=== PATIENT | male | born 1950 | race Caucasian/White ===

== ENCOUNTER 2017-12-19 10:48 | Inpatient (IN) | payer OTHER, MEDICARE ==
[~2017-12-19] VITALS: Ht 172.7 cm; Wt 85.0 kg
[2017-12-19] VITALS (9 sets, daily range): BP systolic 112–155; BP diastolic 68–96; PULSE 60–86; RESP 16–18; TEMP 98.3–98.9; O2SAT 96–99
[2017-12-19] MEDS ORDERED: MORPHINE SULFATE 2 MG/ML SYRINGE ONE (15:52)
[2017-12-19] MEDS ORDERED: DEXTROSE 50% IN WATER 50 ML VIAL(D50) IV PUSH PRN (16:15)
[2017-12-19] MEDS ORDERED: INSULIN REGULAR (IV INFUSION) 100 UNITS in SODIUM CHLORIDE 0.9% INJ 99 ML IV PRN (16:15)
[2017-12-19] MEDS ORDERED: PAPAVERINE INJ 60 MG, NITROGLYCERIN INJ 100 MCG, VERAPAMIL INJ 100 MG in SODIUM CHLORID... IRRIGATION SCH (16:15)
[2017-12-19] MEDS ORDERED: CHLORHEXIDINE GLUCONATE 4% SOLN 120 ML BTL TOPICAL SCH (16:15)
[2017-12-19] MEDS ORDERED: ceFAZolin 2 GM PREMIX 50 ML IV SCH (16:15)
[2017-12-19] MEDS ORDERED: SODIUM CHLORIDE 0.9% FLUSH 10 ML FLUSH IV FLUSH PRN ×2 (16:15→16:30)
[2017-12-19] MEDS ORDERED: METOPROLOL TARTRATE 25 MG TAB PO SCH (16:15)
[2017-12-19] MEDS ORDERED: NALOXONE HCL 0.4 MG/ML AMP IV PUSH PRN (16:30)
[2017-12-19] MEDS ORDERED: SENNOSIDES 8.6 MG TAB PO PRN (16:30)
[2017-12-19] MEDS ORDERED: MAGNESIUM HYDROXIDE SUSP 30 ML CUP PO PRN (16:30)
[2017-12-19] MEDS ORDERED: LACTULOSE SYRUP 20 GM/30 ML CUP PO PRN (16:30)
[2017-12-19] MEDS ORDERED: BISACODYL 10 MG SUPP RECTAL PRN (16:30)
[2017-12-19] MEDS ORDERED: hydrALAZINE HCL 20 MG/ML VIAL IV PUSH PRN (16:45)
[2017-12-19 17:06] LABS: AUTOMATED NEUTROPHIL # 4.7 TH/MM3 (1.8-7.7); BASOPHIL # 0.1 TH/MM3 (0-0.2); BASOPHIL % 0.7 % (0.0-2.0); EOSINOPHIL # 0.1 TH/MM3 (0-0.4); EOSINOPHIL % 1.1 % (0.0-4.0); HEMATOCRIT 40.7 % (39.0-51.0); HEMOGLOBIN 14.2 GM/DL (13.0-17.0); LYMPH % 23.6 % (9.0-44.0); LYMPHOCYTE # 1.7 TH/MM3 (1.0-4.8); MEAN CELL VOLUME 96.7 FL (80.0-100.0); MEAN CORPUSCULAR HEMOGLOBIN 33.7 PG (27.0-34.0); MEAN CORPUSCULAR HGB CONC 34.8 % (32.0-36.0); MEAN PLATELET VOLUME 9.4 FL (7.0-11.0); MONO % 7.2 % (0.0-8.0); MONOCYTE # 0.5 TH/MM3 (0-0.9); NEUT % 67.4 % (16.0-70.0); PLATELET COUNT 180 TH/MM3 (150-450); RED BLOOD COUNT 4.21 MIL/MM3 (4.50-5.90); RED CELL DISTRIBUTION WIDTH 12.9 % (11.6-17.2)
[2017-12-19 17:14] LABS: INTERNATIONAL NORMALIZED RATIO 1.1 RATIO; PROTHROMBIN TIME - PATIENT 10.7 SEC (9.8-11.6)
[2017-12-19 17:28] LABS: ALBUMIN 3.4 GM/DL (3.4-5.0); ALT (GPT) 38 U/L (12-78); AST (GOT) 93 U/L (15-37); BICARBONATE 22.6 MEQ/L (21.0-32.0); BLOOD UREA NITROGEN 8 MG/DL (7-18); CALCIUM 7.8 MG/DL (8.5-10.1); CHLORIDE 109 MEQ/L (98-107); CREATININE 0.96 MG/DL (0.60-1.30); GLOMERULAR FILTRATION RATE 78 ML/MIN (>89); GLUCOSE,RANDOM 88 MG/DL (74-106); SODIUM (NA) 143 MEQ/L (136-145)
[2017-12-19 17:32] LABS: ALKALINE PHOSPHATASE 60 U/L (45-117); TOTAL BILIRUBIN ADULT 0.3 MG/DL (0.2-1.0); TOTAL PROTEIN 6.4 GM/DL (6.4-8.2)
--- NOTE | 2017-12-19 17:32 | MB ---
cc: Agnieszka Landon Jacqueline R ARNP DATE: 12/19/2017 HISTORY OF PRESENT ILLNESS: A 67-year-old male transferred from [facility] by the request of Dr. Neil Estrella, cardiology. Primary care physician is Dr. Nicole at the [facility] in [place]. 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 He is a 67-year-old male who was visiting his son in the [place] area. Normally he lives in [place]. He was helping him move, when he developed some chest pain about 4:30 on 12/18, went to [place] [facility]. The pain was a sudden onset about a 9/10. He had not been feeling well over the past couple of weeks. He also started to break out in a cold sweat and diaphoretic. Denied any dizziness or shortness of breath. He started having some nausea when he arrived. He received some Dilaudid and Zofran. He was ruled in for a non-STEMI. The troponins, initial was 0.01 and then 0.13, and then the last was 0.73. The last troponin apparently was 1.14. The initial EKG showed some nonspecific T-wave changes, left axis deviation. He underwent cardiac catheterization today by Dr. Estrella, which showed a 90-95% stenosis in the left main, the mid LAD 60%, the left circumflex 85%, the RCA 60%. EF was approximately 45%. He was transferred to our facility and will be evaluated for urgent coronary artery bypass grafting. PAST MEDICAL HISTORY: Includes coronary artery disease, prior stenting x4 at [facility] in [place] about 10 years ago. He has a history of hypertension, hyperlipidemia, COPD, thyroid cancer in 2015 with status post total thyroidectomy. Other surgeries include left nephrectomy at age 33 due to some ureter problem ALLERGIES: NO KNOWN ALLERGIES. HOME MEDICATIONS: 1. Verapamil 180 mg per day. 2. Tramadol 50 b.i.d. 3. Viagra 100 p.r.n. 4. Omeprazole 20. 5. Levothyroxine 175 mcg per day. 6. Zyrtec 10 p.o. daily. 7. Aspirin 81 mg daily. 9. Xanax 1 mg b.i.d. FAMILY HISTORY: Mother IS still alive at age 97. Father from a stroke. SOCIAL HISTORY: He is , has 1 child, lives with his significant other. Her name is Nimco. He does drink approximately 4 drinks per day. He has never undergone any type of withdrawals. Prior tobacco. He smoked for 20-30 years off and on. He quit 10 years ago. REVIEW OF SYSTEMS: GENERAL: No night sweats, fever, heat and cold intolerance. SKIN: No psoriasis, itching or hives. HEENT: No blurred vision or hearing loss. RESPIRATORY: No cough or shortness of breath. CARDIOVASCULAR: As above in the HPI. GASTROINTESTINAL: No diarrhea or vomiting. GENITOURINARY: No burning, frequency, urgency. CENTRAL NERVOUS SYSTEM: No history of TIA, CVA or seizure disorder. ENDOCRINOLOGY: Positive for hypothyroidism. PHYSICAL EXAMINATION: VITAL SIGNS: Blood pressure 150/90, heart rate in the mid 70s. Room air saturation 96%. GENERAL: The patient is awake, alert, in no acute distress. HEENT: Head is normocephalic, atraumatic. Pupils equal and reactive. Oral mucosa pink, moist. NECK: Supple. No JVD. CARDIOVASCULAR: Sounds S1, S2. Regular rate and rhythm. No audible rubs, murmurs, or gallops. LUNGS: Clear to auscultation. No wheezes, rales or rhonchi. ABDOMEN: Obese, soft, nontender. No masses or organomegaly. EXTREMITIES: No cyanosis, clubbing or edema. The patient did have a TR band on his right wrist from his catheterization site, which developed a hematoma. Once he arrived to our facility, we immediately replaced the TR band with TR band post nursing instructions. The heparin was initially turned off and will be resumed 6 hours post TR band removal. LABORATORY DATA: From 12/18 - new lab work is pending. Hemoglobin of 14, hematocrit of 42, platelet count of 254. INR 1.0. Sodium 145, potassium 4.2, BUN of 12 with a creatinine of 1.13, glucose random 118. BNP is 379. Troponins as above. IMAGING STUDIES: Chest x-ray just shows some hyperinflation, otherwise unremarkable. CARDIOLOGY STUDIES: EKG as above in the HPI. ASSESSMENT AND PLAN: This is a 67-year-old male transferred from [facility] with multivessel disease, high-grade left main stenosis, evaluated for coronary artery bypass grafting x3. Procedures, alternatives and risks have been discussed with the patient. He is agreeable to proceed. Timing for surgery as per Dr. Henrique Disla. In the meantime, he will be placed on a beta stan, aspirin, statin, nitro paste. Resume heparin this evening and then further planning per Dr. Disla. DOMINGUEZ Nguyen MD JRT/ , 05:03 PM , 05:30 PM
[2017-12-19] MEDS ORDERED: PILL SPLITTER OTHER PRN (18:00)
[2017-12-19] MEDS ORDERED: ONDANSETRON ODT 4 MG TAB PO PRN (18:15)
[2017-12-19] MEDS ORDERED: MORPHINE SULFATE 4 MG/ML INJ IV PRN (18:15)
[2017-12-19] MEDS: METOPROLOL TARTRATE 25 MG TAB PO SCH ×2 (18:26→21:02)
[2017-12-19] MEDS: NITROGLYCERIN 2% OINT 1 GM PACKET TOPICAL SCH ×2 (18:26→23:25)
[2017-12-19] MEDS: HEPARIN-D5W 25,000 U/250 ML 250 ML IV PRN (19:00)
[2017-12-19 19:07] LABS: CHOLESTEROL/ HDL RATIO 2.6 RATIO
[2017-12-19 19:29] LABS: HEMOGLOBIN A1C 5.4 % (4.3-6.0)
[2017-12-19 19:57] LABS: BACTERIA, URINE RARE /hpf; BILIRUBIN, URINE NEG (NEG); BLOOD, URINE NEG (NEG); GLUCOSE,URINE NEG (NEG); HYALINE CAST, URINE 2 /lpf (RARE); KETONE, URINE 10 mg/dL (NEG); NITRITE,URINE NEG (NEG); URINE COLOR LIGHT-YELLOW (YELLW/STRAW); URINE LEUKOCYTE ESTERASE LARGE (NEG)
[2017-12-19] MEDS ORDERED: SODIUM CHLORIDE 0.9% FLUSH 10 ML FLUSH IV FLUSH SCH (21:00)
[2017-12-19] MEDS: DOCUSATE SODIUM 50 MG/SENNA 8.6 MG TAB PO SCH (21:02)
[2017-12-19] MEDS: ATORVASTATIN 40 MG TAB PO SCH (21:02)
[2017-12-19] MEDS: ALPRAZolam 0.5 MG TAB PO PRN (21:02)
[2017-12-19] MEDS: BUDESONIDE-FORMOTEROL 80/4.5 MCG INHALER INH SCH (21:09)
[2017-12-19] MEDS: SODIUM CHLORIDE 0.9% FLUSH 10 ML FLUSH IV FLUSH SCH (21:10)
--- NOTE | 2017-12-19 21:28 | RADRPT ---
EXAM DATE: 12/19/2017 9:22 PM EDT AGE/SEX: 67 years / Male INDICATIONS: Pre-operative for CABG. Evaluate for pneumothorax, pneumonia, or communicable disease. CLINICAL DATA: This is the patient's initial encounter. Patient reports that signs and symptoms have been present for 1 day and indicates a pain score of 0/10. MEDICAL/SURGICAL HISTORY: . Myocardial infarction. . Cardiac stent. COMPARISON: No prior exams available for comparison. FINDINGS: A single AP view of the chest demonstrates the lungs to be symmetrically aerated without evidence of mass, infiltrate or effusion. The cardiomediastinal contours are unremarkable. There is a dextroscol iosis of the thoracic spine. CONCLUSION: No acute cardiopulmonary process. Electronically signed by: Duke Decker MD 12/19/2017 9:27 PM EDT
[2017-12-19] MEDS: ACETAMINOPHEN/HYDROcodone 325 MG/5 MG TAB PO PRN (22:14)
--- NOTE | 2017-12-19 23:18 | RADRPT ---
EXAM DATE: 12/19/2017 11:11 PM EDT AGE/SEX: 67 years / Male INDICATIONS: PreOp Cardiac Surgery. CLINICAL DATA: This is the patient's initial encounter. Patient reports that signs and symptoms have been present for 1 day and indicates a pain score of 0/10. MEDICAL/SURGICAL HISTORY: Cardiovascular disease. Hypercholesterolemia. Hypertension. COPD. Thyroid Cancer. Thyroidectomy. Coronary artery stent. Nephrectomy. COMPARISON: No prior exams available for comparison. VELOCITY PARAMETERS: ICA/CCA Ratio: Right 1.16 , Left 0.87 ICA: Right 121 cm/sec, Left 109 cm/sec CCA: Right 104 cm/sec, Left 126 cm/sec ECA: Right 113 cm/sec, Left 131 cm/sec Vertebral: Right 20 cm/sec antegrade, Left 51 cm/sec antegrade FINDINGS: Right Carotid: There is mild soft plaque at the carotid bulb region. No significant stenosis is visu alized. The waveforms are within normal limits. Left Carotid: There is minimal soft plaque at the carotid bulb region. No significant stenosis is vi sualized. The waveforms are within normal limits. Other: None. CONCLUSION: Plaque at the carotid bulb regions being mild on the right and minimal on the left withou t significant stenosis. Electronically signed by: Duke Decker MD 12/19/2017 11:17 PM EDT
--- NOTE | 2017-12-19 23:19 | RADRPT ---
EXAM DATE: 12/19/2017 11:16 PM EDT AGE/SEX: 67 years / Male INDICATIONS: PreOp Cardiac Surgery. CLINICAL DATA: This is the patient's initial encounter. Patient reports that signs and symptoms have been present for 1 day and indicates a pain score of 0/10. MEDICAL/SURGICAL HISTORY: Cardiovascular disease. Hypercholesterolemia. Hypertension. COPD. Thyroid Cancer. Thyroidectomy. Coronary artery stent. Nephrectomy. COMPARISON: No prior exams available for comparison. TECHNIQUE: Venous ultrasound of both lower extremities was performed from the inguinal ligament to t he proximal calf. Real-time, color Doppler and spectral tracing, compression and augmentation techni ques were used. FINDINGS: Right Leg: There is normal compressibility of the deep venous system from the inguinal region to the proximal calf. No echogenic clot is seen in the lumen of the common femoral, femoral, popliteal, an d posterior tibial veins. There is a normal response of the venous system to proximal and distal aug mentation and respiration. Left Leg: There is normal compressibility of the deep venous system from the inguinal region to the proximal calf. No echogenic clot is seen in the lumen of the common femoral, femoral, popliteal, and posterior tibial veins. There is a normal response of the venous system to proximal and distal augm entation and respiration. CONCLUSION: No DVT. Electronically signed by: Duke Decker MD 12/19/2017 11:17 PM EDT
--- NOTE | 2017-12-19 23:54 | RADRPT ---
EXAM DATE: 12/19/2017 11:28 PM EDT AGE/SEX: 67 years / Male INDICATIONS: PreOp Cardiac Surgery. CLINICAL DATA: This is the patient's initial encounter. Patient reports that signs and symptoms have been present for 1 day and indicates a pain score of 0/10. MEDICAL/SURGICAL HISTORY: Cardiovascular disease. Hypercholesterolemia. Hypertension. COPD. Thyroid Cancer. Thyroidectomy. Coronary artery stent. Nephrectomy. COMPARISON: No prior exams available for comparison. MEASUREMENTS: RIGHT THIGH: Proximal:__7 mm Mid:__ 3 mm Distal:__3 mm LEFT THIGH: Proximal:__7 mm Mid:__5 mm Distal:__3 mm RIGHT CALF: Proximal:__3 mm Mid:__4 mm Distal:__3 mm LEFT CALF: Proximal:__2 mm Mid:__2 mm Distal:__3 mm FINDINGS: The venous system of the lower extremities are patent by color Doppler imaging. Measurements of the leg veins (in mm) are listed above. CONCLUSION: 1. Normal venous mapping measurements as above. Electronically signed by: Adam Shine MD 12/19/2017 11:53 PM EDT
[2017-12-20] VITALS (29 sets, daily range): BP systolic 117–152; BP diastolic 73–85; PULSE 52–94; RESP 16–19; TEMP 98.2–99.6; O2SAT 95–99
[2017-12-20] MEDS: ACETAMINOPHEN/HYDROcodone 325 MG/5 MG TAB PO PRN ×2 (04:41→18:25)
[2017-12-20] MEDS: LEVOTHYROXINE SODIUM 150 MCG TAB PO SCH (06:12)
[2017-12-20] MEDS: LEVOTHYROXINE SODIUM 25 MCG TAB PO SCH (06:12)
[2017-12-20] MEDS: NITROGLYCERIN 2% OINT 1 GM PACKET TOPICAL SCH ×4 (06:12→22:25)
[2017-12-20] MEDS: ASPIRIN EC 81 MG TABEC PO SCH (08:52)
[2017-12-20] MEDS: FLUTICASONE PROPIONATE 50 MCG/ACT 16 GM NASAL SPRAY NASAL SCH (08:52)
[2017-12-20] MEDS: PANTOPRAZOLE SOD 40 MG DELAYED RELEASE TAB PO SCH (08:52)
[2017-12-20] MEDS: BUDESONIDE-FORMOTEROL 80/4.5 MCG INHALER INH SCH ×2 (08:52→21:04)
[2017-12-20] MEDS: VERAPAMIL HCL 180 MG SUSTAINED RELEASE TAB PO SCH (08:53)
[2017-12-20] MEDS: SODIUM CHLORIDE 0.9% FLUSH 10 ML FLUSH IV FLUSH SCH ×2 (08:53→21:00)
[2017-12-20] MEDS: METOPROLOL TARTRATE 25 MG TAB PO SCH ×2 (08:53→20:59)
[2017-12-20] MEDS: DOCUSATE SODIUM 50 MG/SENNA 8.6 MG TAB PO SCH ×2 (08:53→21:00)
--- NOTE | 2017-12-20 09:25 | PD.CAR.PN ---
CVT Progress Note Subjective/Hospital Course: Doing well this am. Denies Cp/SOB c/o right hand tingling and numbness..better than yesterday Will ask Dr. Borden for his opinion with concern for compartment syndrome during surgery following full heparinization Plan for CABG Friday if ok with Dr. Borden Objective: Vital Signs Date Time Temp Pulse Resp B/P (MAP) Pulse Ox O2 Delivery O2 Flow Rate FiO2 12/20/17 06:00 54 12/20/17 05:00 54 12/20/17 04:42 57 16 117/73 (88) 96 12/20/17 04:00 56 12/20/17 03:00 54 12/20/17 02:00 62 12/20/17 01:00 58 12/20/17 00:00 56 12/19/17 23:25 61 16 112/68 (83) 96 12/19/17 23:00 60 12/19/17 22:00 68 12/19/17 21:00 82 12/19/17 20:40 98.3 84 18 154/92 (112) 96 12/19/17 20:00 86 12/19/17 19:00 78 12/19/17 18:00 65 12/19/17 16:00 98.9 72 18 155/96 (115) 99 Labs: Laboratory Tests Test 12/20/17 01:03 Activated Partial Thromboplast Time 38.9 SEC (24.3-30.1) Result Diagram: 12/19/17 1639 12/19/17 1639 Henrique Disla MD Dec 20, 2017 09:25
[2017-12-20] MEDS: SULFAMETHOXAZOLE-TRIMETHOPRIM DS 800-160 MG TAB PO SCH ×2 (09:45→20:59)
--- NOTE | 2017-12-20 10:08 | PD.VS.CON ---
History of Present Illness Chief Complaint: R arm hematoma after LHC (radial access) Consult Requested by: Dr. Kathleen Disla History of Present Illness 67 yo male with CAD and AK 10 y ago with coronary stents, admitted to OSH with chest pain and underwent LHC that showed [place] disease. Transferred to [facility] for CABG. Upon arrival, found to have R forearm hematoma proximal to site of access radial artery. Pt elevated and used compression overnight and called this morning to evaluate. Notes he had radial side numbness last night but normal today. Motor intact. No pain only soreness. Past/Family/Social History Past Medical History CAD thyroid CA ureteral stricture (?) Past Surgical History thyroidectomy L nephrectomy Social History lives at home Family History no family history of thyroid CA Coded Allergies: No Known Allergies (Verified Allergy, Unknown, 12/19/17) Review of Systems Respiratory: DENIES: Cough, Hemoptysis, Shortness of breath Cardiovascular: DENIES: Chest pain Physical Exam Vitals/I&O Date Time Temp Pulse Resp B/P (MAP) Pulse Ox O2 Delivery O2 Flow Rate FiO2 12/20/17 08:15 98.3 64 18 126/81 (96) 99 12/20/17 06:00 54 12/20/17 05:00 54 12/20/17 04:42 57 16 117/73 (88) 96 12/20/17 04:00 56 12/20/17 03:00 54 12/20/17 02:00 62 12/20/17 01:00 58 12/20/17 00:00 56 12/19/17 23:25 61 16 112/68 (83) 96 12/19/17 23:00 60 12/19/17 22:00 68 12/19/17 21:00 82 12/19/17 20:40 98.3 84 18 154/92 (112) 96 12/19/17 20:00 86 12/19/17 19:00 78 12/19/17 18:00 65 12/19/17 16:00 98.9 72 18 155/96 (115) 99 12/20/17 12/20/17 12/20/17 07:00 15:00 23:00 Intake Total 240 ml Output Total 650 ml Balance -410 ml Neuro: resting comfortably, no distress, [place] HEENT: NC/AT Neck: trachea midline Heart: reg rate Lungs: nonlabored Vascular: palpable R radial and ulnar pulses triphasic radial signal distal to access site bi-tri phasic palmar arch signal Extremities: motor intact and sensory intact R UE including hand fullness and ecchymoses R forearm but compartments not tense Laboratory Tests Test 12/19/17 16:39 12/19/17 16:50 12/19/17 18:30 12/20/17 01:03 White Blood Count 7.0 Red Blood Count 4.21 Hemoglobin 14.2 Hematocrit 40.7 Mean Corpuscular Volume 96.7 Mean Corpuscular Hemoglobin 33.7 Mean Corpuscular Hemoglobin Concent 34.8 Red Cell Distribution Width 12.9 Platelet Count 180 Mean Platelet Volume 9.4 Neutrophils (%) (Auto) 67.4 Lymphocytes (%) (Auto) 23.6 Monocytes (%) (Auto) 7.2 Eosinophils (%) (Auto) 1.1 Basophils (%) (Auto) 0.7 Neutrophils # (Auto) 4.7 Lymphocytes # (Auto) 1.7 Monocytes # (Auto) 0.5 Eosinophils # (Auto) 0.1 Basophils # (Auto) 0.1 CBC Comment DIFF FINAL Differential Comment Prothrombin Time 10.7 Prothromb Time International Ratio 1.1 Activated Partial Thromboplast Time 39.3 38.9 Blood Urea Nitrogen 8 Creatinine 0.96 Random Glucose 88 Total Protein 6.4 Albumin 3.4 Calcium Level 7.8 Alkaline Phosphatase 60 Aspartate Amino Transf (AST/SGOT) 93 Alanine Aminotransferase (ALT/SGPT) 38 Total Bilirubin 0.3 Sodium Level 143 Potassium Level 3.7 Chloride Level 109 Carbon Dioxide Level 22.6 Anion Gap 11 Estimat Glomerular Filtration Rate 78 Hemoglobin A1c 5.4 Troponin I 12.70 Triglycerides Level 112 Cholesterol Level 180 LDL Cholesterol 89 HDL Cholesterol 69.0 Cholesterol/HDL Ratio 2.60 Nasal Screen MRSA (PCR) MRSA NOT DETECTED Urine Color LIGHT-YELLOW Urine Turbidity CLEAR Urine pH 6.0 Urine Specific [place] 1.015 Urine Protein NEG Urine Glucose (UA) NEG Urine Ketones 10 Urine Occult Blood NEG Urine Nitrite NEG Urine Bilirubin NEG Urine Urobilinogen LESS THAN 2.0 Urine Leukocyte Esterase LARGE Urine WBC 17 Urine Bacteria RARE Urine Hyaline Casts 2 Microscopic Urinalysis Comment CULTURE INDICATED Date/Time Source Procedure Growth Status 12/19/17 18:30 Urine Clean Catch Urine Culture Pending Received Last 48 hours Impressions Chest X-Ray 12/19/17 1620 Signed Impressions: CONCLUSION: No acute cardiopulmonary process. Lower Extremity Ultrasound 12/19/17 0000 Signed Impressions: CONCLUSION: 1. Normal venous mapping measurements as above. Lower Extremity Ultrasound 12/19/17 0000 Signed Impressions: CONCLUSION: No DVT. Carotid Artery Ultrasound 12/19/17 0000 Signed Impressions: CONCLUSION: Plaque at the carotid bulb regions being mild on the right and mini mal on the left without significant stenosis. Assessment and Plan Plan R forearm hematoma after radial artery cath I think it is safe to proceed with CABG on Friday including systemic anticoagulation. Discussed with the patient and his that if the hematoma worsens with anticoagulation or certainly if he develops neurovascular compromise or any suggestion of compartment syndrome, then he'll need surgical exploration. Discussed with Dr. Disla as well. Will follow. Yahir Borden MD Dec 20, 2017 10:08
[2017-12-20] MEDS: HEPARIN-D5W 25,000 U/250 ML 250 ML IV PRN (11:24)
--- NOTE | 2017-12-20 15:00 | EKG ---
Date Performed: 12/19/2017 Time Performed: 17:44:38 PTAGE: 67 years EKG: Sinus rhythm with PVC(s). Prolonged QT interval Lateral T wave changes are nonspecific Borderline ECG NO PREVIOUS TRACING DOCTOR: Jalen Lao Interpretating Date/Time 12/20/2017 14:59:16
[2017-12-20] MEDS: ALPRAZolam 0.5 MG TAB PO PRN ×2 (15:01→22:27)
[2017-12-20] MEDS ORDERED: ALPRAZolam 0.5 MG TAB PO ONE (19:45)
[2017-12-20] MEDS ORDERED: ACETAMINOPHEN 325 MG TAB PO ONE (19:45)
[2017-12-20] MEDS: ATORVASTATIN 40 MG TAB PO SCH (20:59)
[2017-12-20] MEDS ORDERED: traMADol HCL 50 MG TAB PO SCH (21:45)
[2017-12-21] VITALS (29 sets, daily range): BP systolic 86–152; BP diastolic 48–89; PULSE 59–93; RESP 16–20; TEMP 98.7–100.8; O2SAT 92–96
[2017-12-21] MEDS: ACETAMINOPHEN 325 MG TAB PO PRN ×3 (04:35→23:14)
[2017-12-21] MEDS: LEVOTHYROXINE SODIUM 25 MCG TAB PO SCH (06:22)
[2017-12-21] MEDS: NITROGLYCERIN 2% OINT 1 GM PACKET TOPICAL SCH ×4 (06:22→22:53)
[2017-12-21] MEDS: LEVOTHYROXINE SODIUM 150 MCG TAB PO SCH (06:22)
--- NOTE | 2017-12-21 08:58 | PD.VS.PN ---
Subjective Subjective/Hospital Course Pt reports fevers and chills overnight but no chest pain arm sore but no hand complaints Objective Vitals/I&O Date Time Temp Pulse Resp B/P (MAP) Pulse Ox O2 Delivery O2 Flow Rate FiO2 12/21/17 07:01 74 12/21/17 06:19 76 12/21/17 05:20 75 12/21/17 04:49 84 12/21/17 03:50 99.9 89 20 152/89 (110) 94 12/21/17 03:20 92 12/21/17 02:07 88 12/21/17 01:39 87 12/21/17 00:31 93 12/20/17 23:34 98.5 92 19 141/77 (98) 95 12/20/17 23:20 78 12/20/17 22:00 78 12/20/17 21:00 80 12/20/17 20:00 79 12/20/17 19:30 99.6 94 18 152/79 (103) 97 12/20/17 19:30 94 12/20/17 18:01 78 12/20/17 17:00 80 12/20/17 16:01 78 12/20/17 15:15 98.2 66 18 127/85 (99) 96 12/20/17 15:00 71 12/20/17 14:00 76 12/20/17 13:00 80 12/20/17 12:01 74 12/20/17 11:15 98.3 52 18 126/74 (91) 98 12/20/17 11:00 54 12/20/17 10:00 62 12/20/17 09:00 60 12/21/17 12/21/17 12/21/17 07:00 15:00 23:00 Intake Total 720 ml Output Total 975 ml Balance -255 ml Physical Exam resting comfortably no distress R UE ecchymoses palpable radial and ulnar pulses good hand strength forearm soft Laboratory Laboratory Tests Test 12/20/17 10:00 12/20/17 21:09 12/21/17 04:05 Activated Partial Thromboplast Time 48.7 38.5 43.0 Date/Time Source Procedure Growth Status 12/20/17 19:30 Urine Clean Catch Urine Culture Pending Received Imaging Last 48 hours Impressions Chest X-Ray 12/19/17 1620 Signed Impressions: CONCLUSION: No acute cardiopulmonary process. Assessment and Plan Plan R forearm hematoma after radial artery cath expected progression of ecchymoses but compartments soft, no distal malperfusion I think it is safe to proceed with CABG on Friday including systemic anticoagulation. Yahir Borden MD Dec 21, 2017 08:58
[2017-12-21] MEDS: DOCUSATE SODIUM 50 MG/SENNA 8.6 MG TAB PO SCH ×2 (09:00→21:21)
[2017-12-21] MEDS: SODIUM CHLORIDE 0.9% FLUSH 10 ML FLUSH IV FLUSH SCH ×2 (09:00→21:27)
[2017-12-21] MEDS: SULFAMETHOXAZOLE-TRIMETHOPRIM DS 800-160 MG TAB PO SCH (09:10)
[2017-12-21] MEDS: traMADol HCL 50 MG TAB PO SCH ×2 (09:11→21:23)
[2017-12-21] MEDS: BUDESONIDE-FORMOTEROL 80/4.5 MCG INHALER INH SCH ×2 (09:11→21:27)
[2017-12-21] MEDS: FLUTICASONE PROPIONATE 50 MCG/ACT 16 GM NASAL SPRAY NASAL SCH (09:11)
[2017-12-21] MEDS: ASPIRIN EC 81 MG TABEC PO SCH (09:11)
[2017-12-21] MEDS: METOPROLOL TARTRATE 25 MG TAB PO SCH ×2 (09:12→21:21)
[2017-12-21] MEDS: PANTOPRAZOLE SOD 40 MG DELAYED RELEASE TAB PO SCH (09:12)
[2017-12-21] MEDS: VERAPAMIL HCL 180 MG SUSTAINED RELEASE TAB PO SCH (09:12)
--- NOTE | 2017-12-21 09:21 | PD.CAR.PN ---
CVT Progress Note Subjective/Hospital Course: 12/20 Doing well this am. Denies Cp/SOB c/o right hand tingling and numbness..better than yesterday Will ask Dr. Borden for his opinion with concern for compartment syndrome during surgery following full heparinization Plan for CABG Friday if ok with Dr. Borden 12/21 Remains CP free Had temp overnight. CBC pending. Pancultured Currently second case tomorrow pending fever pattern and cultures Objective: Vital Signs Date Time Temp Pulse Resp B/P (MAP) Pulse Ox O2 Delivery O2 Flow Rate FiO2 12/21/17 07:01 74 12/21/17 06:19 76 12/21/17 05:20 75 12/21/17 04:49 84 12/21/17 03:50 99.9 89 20 152/89 (110) 94 12/21/17 03:20 92 12/21/17 02:07 88 12/21/17 01:39 87 12/21/17 00:31 93 12/20/17 23:34 98.5 92 19 141/77 (98) 95 12/20/17 23:20 78 12/20/17 22:00 78 12/20/17 21:00 80 12/20/17 20:00 79 12/20/17 19:30 99.6 94 18 152/79 (103) 97 12/20/17 19:30 94 12/20/17 18:01 78 12/20/17 17:00 80 12/20/17 16:01 78 12/20/17 15:15 98.2 66 18 127/85 (99) 96 12/20/17 15:00 71 12/20/17 14:00 76 12/20/17 13:00 80 12/20/17 12:01 74 12/20/17 11:15 98.3 52 18 126/74 (91) 98 12/20/17 11:00 54 12/20/17 10:00 62 Labs: Laboratory Tests Test 12/21/17 04:05 Activated Partial Thromboplast Time 43.0 SEC (24.3-30.1) Result Diagram: 12/19/17 1639 12/19/17 1639 Henrique Disla MD Dec 21, 2017 09:21
[2017-12-21] MEDS: ALPRAZolam 0.5 MG TAB PO PRN (11:14)
[2017-12-21 16:22] LABS: AUTOMATED NEUTROPHIL # 6.8 TH/MM3 (1.8-7.7); BASOPHIL % 0.4 % (0.0-2.0); EOSINOPHIL % 0.4 % (0.0-4.0); HEMATOCRIT 44.6 % (39.0-51.0); HEMOGLOBIN 15.4 GM/DL (13.0-17.0); LYMPH % 10.1 % (9.0-44.0); LYMPHOCYTE # 0.8 TH/MM3 (1.0-4.8); MEAN CELL VOLUME 97.6 FL (80.0-100.0); MEAN CORPUSCULAR HEMOGLOBIN 33.7 PG (27.0-34.0); MEAN CORPUSCULAR HGB CONC 34.5 % (32.0-36.0); MEAN PLATELET VOLUME 9.1 FL (7.0-11.0); MONO % 4.3 % (0.0-8.0); MONOCYTE # 0.3 TH/MM3 (0-0.9); NEUT % 84.8 % (16.0-70.0); PLATELET COUNT 192 TH/MM3 (150-450); RED BLOOD COUNT 4.57 MIL/MM3 (4.50-5.90)
[2017-12-21] MEDS: ACETAMINOPHEN/HYDROcodone 325 MG/5 MG TAB PO PRN (16:24)
[2017-12-21] MEDS ORDERED: diphenhydrAMINE HCL 50 MG/ML VIAL IV PUSH ONE (16:45)
[2017-12-21] MEDS ORDERED: TEMAZEPAM 15 MG CAP PO PRN (19:15)
[2017-12-21] MEDS: CIPROFLOXACIN 500 MG TAB PO SCH (21:00)
[2017-12-21] MEDS: ATORVASTATIN 40 MG TAB PO SCH (21:22)
[2017-12-21] MEDS: HEPARIN-D5W 25,000 U/250 ML 250 ML IV PRN (22:53)
[2017-12-22] VITALS (19 sets, daily range): BP systolic 95–154; BP diastolic 59–91; PULSE 66–94; RESP 15–20; TEMP 98.2–99.2; O2SAT 94–99
[2017-12-22] MEDS: LEVOTHYROXINE SODIUM 25 MCG TAB PO SCH (06:16)
[2017-12-22] MEDS: NITROGLYCERIN 2% OINT 1 GM PACKET TOPICAL SCH ×3 (06:16→18:00)
[2017-12-22] MEDS: LEVOTHYROXINE SODIUM 150 MCG TAB PO SCH (06:16)
[2017-12-22 07:40] LABS: HEMATOCRIT 40.7 % (39.0-51.0); HEMOGLOBIN 14.2 GM/DL (13.0-17.0); MEAN CORPUSCULAR HEMOGLOBIN 33.4 PG (27.0-34.0); MEAN CORPUSCULAR HGB CONC 34.8 % (32.0-36.0); PLATELET COUNT 151 TH/MM3 (150-450); RED BLOOD COUNT 4.24 MIL/MM3 (4.50-5.90); RED CELL DISTRIBUTION WIDTH 13.3 % (11.6-17.2); WHITE BLOOD COUNT 5.5 TH/MM3 (4.0-11.0)
[2017-12-22] MEDS: METOPROLOL TARTRATE 25 MG TAB PO SCH ×2 (08:37→21:00)
[2017-12-22] MEDS: SODIUM CHLORIDE 0.9% FLUSH 10 ML FLUSH IV FLUSH SCH ×2 (08:52→21:15)
[2017-12-22] MEDS: FLUTICASONE PROPIONATE 50 MCG/ACT 16 GM NASAL SPRAY NASAL SCH (08:52)
[2017-12-22] MEDS: BUDESONIDE-FORMOTEROL 80/4.5 MCG INHALER INH SCH ×2 (08:52→21:00)
[2017-12-22] MEDS: DOCUSATE SODIUM 50 MG/SENNA 8.6 MG TAB PO SCH ×2 (08:53→21:00)
[2017-12-22] MEDS: VERAPAMIL HCL 180 MG SUSTAINED RELEASE TAB PO SCH (08:53)
[2017-12-22] MEDS: PANTOPRAZOLE SOD 40 MG DELAYED RELEASE TAB PO SCH (08:53)
[2017-12-22] MEDS: ASPIRIN EC 81 MG TABEC PO SCH (08:53)
[2017-12-22] MEDS: traMADol HCL 50 MG TAB PO SCH ×2 (08:53→21:21)
[2017-12-22] MEDS: CIPROFLOXACIN 500 MG TAB PO SCH (09:00)
[2017-12-22] MEDS: ALPRAZolam 0.5 MG TAB PO PRN (09:30)
[2017-12-22] MEDS ORDERED: ePHEDrine/NS 25 MG/5 ML SYRINGE IV ONE (12:00)
[2017-12-22] MEDS ORDERED: CALCIUM CHLORIDE 10% SOLN 1 GRAM/10 ML SYR IV ONE (12:00)
[2017-12-22] MEDS ORDERED: MAGNESIUM SULFATE 1 GM/2 ML VIAL IV ONE (12:00)
[2017-12-22] MEDS ORDERED: PHENYLEPH/NS 1000 MCG/10 ML SYR IV ONE (12:00)
[2017-12-22] MEDS ORDERED: DEXMEDETOMIDINE HCL 200 MCG/2 ML VIAL IV ONE (12:00)
[2017-12-22] MEDS ORDERED: NS 100 ML (PAB BAG) 200 ML IV ONE (12:00)
[2017-12-22] MEDS ORDERED: VECURONIUM BROMIDE 10 MG VIAL IV ONE (12:00)
[2017-12-22] MEDS ORDERED: HEPARIN SODIUM - SQ 10,000 UNITS/ML VIAL OTHER ONE (12:00)
[2017-12-22] MEDS ORDERED: SODIUM CHLOR 0.9% 250 ML INJ 500 ML IV ONE (12:00)
[2017-12-22] MEDS ORDERED: SODIUM CHLORID 0.9% 500 ML INJ 500 ML IV ONE (12:00)
[2017-12-22] MEDS ORDERED: LABETALOL HCL 100 MG/20 ML VIAL IV ONE (12:00)
[2017-12-22] MEDS ORDERED: PROTAMINE SULFATE 250 MG/25 ML VIAL IV ONE (12:00)
[2017-12-22] MEDS ORDERED: NORMOSOL R INJ 1,000 ML IV ONE (12:00)
[2017-12-22] MEDS ORDERED: AMINOCAPROIC ACID INJ 250 MG/ML 20 ML VIAL IV ONE (12:00)
[2017-12-22] MEDS ORDERED: ceFAZolin 2 GM PREMIX 50 ML ONE (13:08)
[2017-12-22] MEDS ORDERED: HEPARIN SODIUM - SQ 10,000 UNITS/ML VIAL ONE (13:08)
[2017-12-22] MEDS ORDERED: ceFAZolin INJ 1,000 MG VIAL ONE (13:08)
[2017-12-22] MEDS ORDERED: VANCOMYCIN HCL 1000 MG VIAL ONE (13:08)
[2017-12-22] MEDS: CEFAZOLIN INJ 500 MG in SODIUM CHLORIDE 0.9% IRR BTL 500 ML IRRIGATION SCH ×2 (15:23→17:18)
[2017-12-22] MEDS: PAPAVERINE INJ 60 MG, NITROGLYCERIN INJ 100 MCG, VERAPAMIL INJ 100 MG in SODIUM CHLORID... IRRIGATION SCH ×2 (15:25→17:18)
[2017-12-22] MEDS ORDERED: DOBUTamine PREMIX DRIP 250 ML IV PRN (18:20)
[2017-12-22] MEDS ORDERED: LACTATED RINGER'S 1000 ML INJ 500 ML IV PRN (18:20)
[2017-12-22] MEDS ORDERED: POTASSIUM CHLORIDE 20 MEQ CONTROLLED RELEASE TAB PO PRN ×2 (18:30)
[2017-12-22] MEDS ORDERED: ALBUMIN 5% INJ 250 ML IV PRN (18:30)
[2017-12-22] MEDS ORDERED: SODIUM BICARBONATE 8.4% SOLN 50 MEQ/50 ML VIAL IV PUSH PRN ×2 (18:30)
[2017-12-22] MEDS ORDERED: DEXMEDETOMIDINE INJ 200 MCG in SODIUM CHLORIDE 0.9% INJ 50 ML IV PRN (18:30)
[2017-12-22] MEDS ORDERED: Post-op Orders (for Pharmacy) OTHER ONE (18:30)
[2017-12-22] MEDS ORDERED: DEXTROSE 50% IN WATER 50 ML VIAL(D50) IV PUSH PRN (18:30)
[2017-12-22] MEDS ORDERED: ONDANSETRON ODT 4 MG TAB PO PRN (18:30)
[2017-12-22] MEDS ORDERED: NITROGLYCERIN-D5W 50 MG/250 ML 250 ML IV PRN (18:30)
[2017-12-22] MEDS ORDERED: POTASSIUM CHLOR 20 MEQ PREMIX 100 ML IV PRN ×3 (18:30)
[2017-12-22] MEDS ORDERED: RESP: RACEPINEPHRINE 2.25% 0.5 ML NEB NEB PRN (18:30)
[2017-12-22] MEDS ORDERED: CLEVIDIPINE INJ 50 ML IV PRN (18:30)
[2017-12-22] MEDS ORDERED: MAGNESIUM SULFATE INJ 2 GM in SODIUM CHLORIDE 0.9% INJ 100 ML IV PRN ×4 (18:30)
[2017-12-22] MEDS ORDERED: ACETAMINOPHEN 650 MG SUPP RECTAL PRN (18:30)
[2017-12-22] MEDS ORDERED: PHENYLEPHRINE INJ 40 MG in DEXTROSE 5% IN WATE 500 ML INJ 496 ML IV PRN ×2 (18:30)
[2017-12-22] MEDS ORDERED: RESP: ALBUTEROL 2.5 MG/IPRATROPIUM 0.5 MG NEB (PRN) NEB (18:30)
[2017-12-22] MEDS ORDERED: MEPERIDINE HCL 25 MG/ML VIAL IV PUSH PRN (18:30)
[2017-12-22] MEDS ORDERED: INSULIN REGULAR (IV INFUSION) 100 UNITS in SODIUM CHLORIDE 0.9% INJ 99 ML IV PRN (18:30)
[2017-12-22] MEDS ORDERED: CALCIUM CHLORIDE 10% 1 GRAM/10 ML VIAL IV PUSH PRN (18:30)
[2017-12-22] MEDS ORDERED: hydrALAZINE HCL 20 MG/ML VIAL IV PUSH PRN (18:30)
[2017-12-22] MEDS ORDERED: DOPamine 400 MG/250 ML INJ 250 ML IV PRN (18:30)
[2017-12-22] MEDS ORDERED: ACETAMINOPHEN 325 MG TAB PO PRN (18:30)
[2017-12-22] MEDS ORDERED: METOPROLOL TARTRATE 5 MG/5 ML VIAL IV PUSH PRN (18:30)
[2017-12-22] MEDS ORDERED: CALCIUM CHLORIDE INJ 1 GM in SODIUM CHLORIDE 0.9% INJ 100 ML IV PRN (18:30)
[2017-12-22] MEDS ORDERED: SODIUM CHLORIDE 0.9% FLUSH 10 ML FLUSH IV FLUSH PRN (18:30)
[2017-12-22] MEDS ORDERED: MORPHINE SULFATE 4 MG/ML INJ IV PUSH PRN (18:30)
--- NOTE | 2017-12-22 18:32 | PD.OP ---
cc: Henrique Disla MD Operative Report Date of Surgery: Dec 22, 2017 Preoperative Diagnosis: Postoperative Diagnosis: Procedure: 1. Urgent Off-pump Coronary Artery Bypass Grafting x 3 with reverse saphenous vein graft to Left Anterior Descending (LAD), reverse saphenous vein graft to Diagonal 1 (D1), reverse saphenous vein graft to the Obtuse Marginal 1 (OM1) 2. Left Internal Mammary Artery (MOORE) [place] 3. Left Leg Endoscopic Vein [place] 4. Intraoperative Vein Mapping. Surgeon: Henriqeu Disla City Marshal(s): Hakan Moran Operation and Findings: PREPROCEDURE DIAGNOSES 1. Severe Two Vessel Coronary Artery Disease. 2. Acute Myocardial Infarction 3. Previous LAD Stenting 4. Thyroid Cancer POSTPROCEDURE DIAGNOSES Same SURGICAL PROCEDURE 1. Urgent Off-pump Coronary Artery Bypass Grafting x 3 with reverse saphenous vein graft to Left Anterior Descending (LAD), reverse saphenous vein graft to Diagonal 1 (D1), reverse saphenous vein graft to the Obtuse Marginal 1 (OM1) 2. Left Internal Mammary Artery (MOORE) [place] 3. Left Leg Endoscopic Vein [place] 4. Intraoperative Vein Mapping. SURGEON Henrique Disla MD GEOTHERMAL OPERATING ENGINEER MAY Whitney ANESTHESIA General endotracheal MEDIA RELATIONS MANAGER JAMES Costa MD PREPARATION ChloraPrep. COUNTS Needle, sponge, and instrument counts were correct. DRAINS Two 32-Serbian mediastinal tubes. COMPLICATIONS None. INDICATIONS FOR PROCEDURE The patient is a 67-year-old presenting with chest pain and AMI. Patient was noted to have two-vessel coronary artery disease. The patient is being brought to the operating room for surgical revascularization therapy. PROCEDURE Patient was brought to the operating room and placed supine on the OR table. Following the induction of adequate general endotracheal anesthesia and placement of appropriate monitoring devices, intraoperative vein mapping was performed which revealed suitable-caliber conduit in bilateral lower extremities. The patient was then prepped and draped in standard sterile fashion. Next, 2500 units of intravenous heparin was given. The left greater saphenous vein was harvested endoscopically. This was a good-caliber conduit. Simultaneously, a median sternotomy was performed and the left internal mammary artery dissected free off the posterior sternal table. The MOORE was densely adherent to the sternum proximally with an apparent osteophyte engulfing it. It was completely stuck and attempts at harvesting resulted in adventitial injury to the graft. I decided to harvest the pedicle as a free graft, however, after further exploration of the artery, it was noted that there were diffuse calcific plaques within the lumen. Therefore, plans were made to abandon the MOORE and proceed with just vein grafts. The patient was systemically heparinized and anticoagulation monitored by serial ACT measurements. The pericardium was then divided in the midline, the cradle created and targets analyzed. At this point, all anastomoses were performed in a beating-heart fashion using the [employer] stabilizing system. The LAD was very diffusely and heavily diseased until its distal most portion after the stents. Segment of saphenous vein graft was anastomosed to the distal most LAD (1.75 mm) in an end- to-side fashion using 7-0 Prolene. The next segment was anastomosed to the OM1 ( 1.75 mm) in an end-to-side fashion using 7-0 Prolene. The segment was anastomosed to the D1 (1.75 mm) in an end-to-side fashion using 7-0 Prolene. The proximal anastomoses were then constructed to the ascending aorta in a running manner using 6-0 Prolene. All anastomotic sites were inspected and appeared to be hemostatic and patent. Protamine solution was given. Strict hemostasis was assured. The closure was undertaken. 2 chest tubes were placed. The pericardium was reapproximated in the midline. The sternum was approximated using sternal wires. The muscular and fascial layer were then closed in 3 layers. The endoscopic vein harvest site was closed in 2 layers. The patient tolerated the procedure well and was transferred to CVICU in stable condition. Henrique Disla MD Dec 22, 2017 18:32
[2017-12-22] MEDS ORDERED: MIDAZOLAM HCL 2 MG/2 ML VIAL ONE (19:01)
[2017-12-22] MEDS ORDERED: fentaNYL CITRATE 250 MCG/5 ML AMP ONE (19:02)
--- NOTE | 2017-12-22 19:39 | RADRPT ---
EXAM DATE: 12/22/2017 7:15 PM EDT AGE/SEX: 67 years / Male INDICATIONS: Post CABG. CLINICAL DATA: This is the patient's initial encounter. Patient reports that signs and symptoms have been present for 1 day and indicates a pain score of Nonresponsive. MEDICAL/SURGICAL HISTORY: . Myocardial infarction. . Cardiac stent. COMPARISON: [facility] [place]ST SINGLE AP, 12/19/2017. . FINDINGS: ET tube is present with tip overlapping approximately 1-2 above the luis. NG tube is present with t ip in the stomach. Mediastinal drainage tube is in place. Left chest tube is in place without pneumot horax. Mild atelectasis is seen in left upper and lower lobe. CONCLUSION: Slight left lung atelectasis. Electronically signed by: Chi Colorado MD 12/22/2017 7:37 PM EDT
[2017-12-22] MEDS: ACETAMINOPHEN 1000 MG/100 ML 100 ML IV SCH ×2 (19:57→23:39)
[2017-12-22] MEDS: KETOROLAC TROMETHAMINE 30 MG/ML (IVP) VIAL IV PUSH PRN (19:57)
[2017-12-22] MEDS: RESP: ALBUTEROL 2.5 MG/IPRATROPIUM 0.5 MG NEB (SCH) NEB (20:13)
[2017-12-22] MEDS ORDERED: AMIODARONE 200 MG TAB PO SCH (21:00)
[2017-12-22] MEDS: ATORVASTATIN 40 MG TAB PO SCH (21:21)
[2017-12-22] MEDS ORDERED: CETI10 PO (22:02)
[2017-12-22] MEDS ORDERED: XANA1TAB2 PO (22:02)
[2017-12-22] MEDS ORDERED: TRAM50TA PO (22:02)
[2017-12-22] MEDS ORDERED: OMEP20TA93 PO (22:02)
[2017-12-22] MEDS ORDERED: ASPI81CH6 CHEW (22:02)
[2017-12-22] MEDS ORDERED: SYMB80AE INH (22:02)
[2017-12-22] MEDS ORDERED: TRIA1SPR5 EACH NARE (22:02)
[2017-12-22] MEDS ORDERED: VERA180C3 PO (22:02)
[2017-12-22] MEDS ORDERED: VIAG100T PO (22:02)
[2017-12-22] MEDS ORDERED: LEVO175T2 PO (22:02)
[2017-12-22] MEDS: ceFAZolin 2 GM PREMIX 50 ML IV SCH (22:37)
[2017-12-23] VITALS (17 sets, daily range): BP systolic 100–129; BP diastolic 61–82; PULSE 75–105; RESP 15–20; TEMP 98.3–98.6; O2SAT 94–98
[2017-12-23] MEDS: KETOROLAC TROMETHAMINE 30 MG/ML (IVP) VIAL IV PUSH PRN ×3 (02:38→23:14)
[2017-12-23] MEDS: RESP: ALBUTEROL 2.5 MG/IPRATROPIUM 0.5 MG NEB (SCH) NEB ×3 (03:46→19:53)
[2017-12-23] MEDS: ACETAMINOPHEN/HYDROcodone 325 MG/5 MG TAB PO PRN ×5 (04:12→21:10)
[2017-12-23 05:04] LABS: HEMATOCRIT 31.2 % (39.0-51.0); HEMOGLOBIN 10.9 GM/DL (13.0-17.0); MEAN CELL VOLUME 95.9 FL (80.0-100.0); MEAN CORPUSCULAR HEMOGLOBIN 33.6 PG (27.0-34.0); MEAN PLATELET VOLUME 9.7 FL (7.0-11.0); PLATELET COUNT 130 TH/MM3 (150-450); RED BLOOD COUNT 3.25 MIL/MM3 (4.50-5.90); RED CELL DISTRIBUTION WIDTH 13.2 % (11.6-17.2); WHITE BLOOD COUNT 5.5 TH/MM3 (4.0-11.0)
[2017-12-23 05:11] LABS: BICARBONATE 22.6 MEQ/L (21.0-32.0); CALCIUM 7.7 MG/DL (8.5-10.1); CREATININE 1.05 MG/DL (0.60-1.30); MAGNESIUM 2.2 MG/DL (1.5-2.5)
[2017-12-23] MEDS: NITROGLYCERIN 2% OINT 1 GM PACKET TOPICAL SCH ×2 (05:14)
[2017-12-23] MEDS: PANTOPRAZOLE SOD 40 MG DELAYED RELEASE TAB PO SCH (05:34)
--- NOTE | 2017-12-23 05:34 | RADRPT ---
EXAM DATE: 12/23/2017 5:27 AM EDT AGE/SEX: 67 years / Male INDICATIONS: Short of breath. CLINICAL DATA: This is the patient's subsequent encounter. Patient reports that signs and symptoms h ave been present for 2 days and indicates a pain score of 0/10. MEDICAL/SURGICAL HISTORY: . Myocardial infarction . Cardiac stent. COMPARISON: [facility] [place], CHEST SINGLE AP, 12/22/2017. . FINDINGS: Single AP view of the chest. Endotracheal tube and nasogastric tube no longer seen. Right IJ central venous catheter and left-sided chest tube remain in place. Mild patchy bilateral lower lung zone atel ectasis. No evidence of pneumothorax. CONCLUSION: Interval removal of endotracheal tube and nasogastric tube. Mild bilateral lower lung zone atelectasi s. Electronically signed by: Judd Arreola MD 12/23/2017 5:32 AM EDT
[2017-12-23] MEDS: LEVOTHYROXINE SODIUM 150 MCG TAB PO SCH (05:35)
[2017-12-23] MEDS: ceFAZolin 2 GM PREMIX 50 ML IV SCH ×3 (05:35→23:08)
[2017-12-23] MEDS: ACETAMINOPHEN 1000 MG/100 ML 100 ML IV SCH ×2 (05:35→12:13)
[2017-12-23] MEDS: LEVOTHYROXINE SODIUM 25 MCG TAB PO SCH (05:35)
[2017-12-23] MEDS ORDERED: BISACODYL 10 MG SUPP RECTAL PRN (08:15)
[2017-12-23] MEDS ORDERED: DEXTROSE 50% IN WATER 50 ML VIAL(D50) IV PUSH PRN (08:15)
[2017-12-23] MEDS ORDERED: GLUCAGON 1 MG/ML VIAL OTHER PRN (08:15)
--- NOTE | 2017-12-23 08:18 | PD.CAR.PN ---
CVT Progress Note Subjective/Hospital Course: 12/20 Doing well this am. Denies Cp/SOB c/o right hand tingling and numbness..better than yesterday Will ask Dr. Borden for his opinion with concern for compartment syndrome during surgery following full heparinization Plan for CABG Friday if ok with Dr. Borden 12/21 Remains CP free Had temp overnight. CBC pending. Pancultured Currently second case tomorrow pending fever pattern and cultures 12/22 1. Urgent Off-pump Coronary Artery Bypass Grafting x 3 with reverse saphenous vein graft to Left Anterior Descending (LAD), reverse saphenous vein graft to Diagonal 1 (D1), reverse saphenous vein graft to the Obtuse Marginal 1 (OM1) 2. Left Internal Mammary Artery (MOORE) [place] 3. Left Leg Endoscopic Vein [place] 4. Intraoperative Vein Mapping. extubated after surgery crystalloid 3000cc, cell saver 250cc, EBL 500cc 12/23 pt had some nausea last pm ECG NSR with occ PVC/ increase amiodarone dose OOB to chair add reglan for nausea Objective: GENERAL: A&O x 3 SKIN: Warm and dry. Prevena to chest , scottie wrap left leg HEAD: Normocephalic. EYES: No scleral icterus. No injection or drainage. NECK: Supple, trachea midline. No JVD or lymphadenopathy. CARDIOVASCULAR: Regular rate and rhythm without murmurs, gallops, or rubs. slightly irregular RESPIRATORY: Breath sounds equal bilaterally. No accessory muscle use. GASTROINTESTINAL: Abdomen soft, non-tender, nondistended. MUSCULOSKELETAL: No cyanosis, or edema. BACK: Nontender without obvious deformity. No CVA tenderness. Vital Signs Date Time Temp Pulse Resp B/P (MAP) Pulse Ox O2 Delivery O2 Flow Rate FiO2 12/23/17 07:00 78 12/23/17 03:02 98.4 77 15 100/65 (77) 98 106/62 (77) 12/23/17 03:02 78 12/22/17 23:24 98 Nasal Cannula 4.00 12/22/17 23:04 98.5 84 15 98/62 (74) 98 102/59 (73) 12/22/17 23:04 84 12/22/17 19:55 94 Nasal Cannula 4.00 12/22/17 19:45 95 Nasal Cannula 5 12/22/17 19:45 95 Nasal Cannula 5.00 12/22/17 19:20 99.0 91 18 154/91 (112) 99 152/88 (109) 12/22/17 19:00 91 12/22/17 18:50 97 Mechanical Ventilator 45 12/22/17 18:50 45 12/22/17 13:00 84 12/22/17 12:00 80 12/22/17 11:00 73 12/22/17 11:00 98.2 84 20 95/59 (71) 96 12/22/17 10:00 72 12/22/17 09:00 76 Labs: Laboratory Tests Test 12/23/17 04:17 White Blood Count 5.5 TH/MM3 (4.0-11.0) Red Blood Count 3.25 MIL/MM3 (4.50-5.90) Hemoglobin 10.9 GM/DL (13.0-17.0) Hematocrit 31.2 % (39.0-51.0) Mean Corpuscular Volume 95.9 FL (80.0-100.0) Mean Corpuscular Hemoglobin 33.6 PG (27.0-34.0) Mean Corpuscular Hemoglobin Concent 35.0 % (32.0-36.0) Red Cell Distribution Width 13.2 % (11.6-17.2) Platelet Count 130 TH/MM3 (150-450) Mean Platelet Volume 9.7 FL (7.0-11.0) Blood Urea Nitrogen 16 MG/DL (7-18) Creatinine 1.05 MG/DL (0.60-1.30) Random Glucose 82 MG/DL (74-106) Calcium Level 7.7 MG/DL (8.5-10.1) Magnesium Level 2.2 MG/DL (1.5-2.5) Sodium Level 140 MEQ/L (136-145) Potassium Level 4.3 MEQ/L (3.5-5.1) Chloride Level 106 MEQ/L (98-107) Carbon Dioxide Level 22.6 MEQ/L (21.0-32.0) Anion Gap 11 MEQ/L (5-15) Estimat Glomerular Filtration Rate 70 ML/MIN (>89) Result Diagram: 12/23/1741612/23/17416 Telemetry: NSR with PAC (1) S/P CABG x 3 Plan: ASA, stain BB amiodarone EF 45% OOB, leave chest tubes in CM eval for HHC reglan for nausea (2) Coronary artery disease (3) Hyperlipemia Plan: n statin (4) Hypertension (5) Hypothyroidism Plan: synthroid Agnieszka Landon Dec 23, 2017 08:18
[2017-12-23] MEDS: METOCLOPRAMIDE HCL 10 MG/2 ML VIAL IV PUSH SCH ×3 (08:44→21:10)
[2017-12-23] MEDS: MAGNESIUM HYDROXIDE SUSP 30 ML CUP PO SCH (08:46)
[2017-12-23] MEDS: AMIODARONE 200 MG TAB PO SCH ×2 (08:48→21:09)
[2017-12-23] MEDS: DOCUSATE SODIUM 50 MG/SENNA 8.6 MG TAB PO SCH ×2 (08:48→21:08)
[2017-12-23] MEDS: CLOPIDOGREL 75 MG TAB PO SCH (08:48)
[2017-12-23] MEDS: MULTIVITAMINS/MINERALS THERAPEUTIC TAB PO SCH (08:48)
[2017-12-23] MEDS: ASPIRIN 81 MG CHEW TAB PO SCH (08:48)
[2017-12-23] MEDS: METOPROLOL TARTRATE 25 MG TAB PO SCH ×2 (08:49→21:09)
[2017-12-23] MEDS: SODIUM CHLORIDE 0.9% FLUSH 10 ML FLUSH IV FLUSH SCH ×2 (08:49→21:10)
[2017-12-23] MEDS: FLUTICASONE PROPIONATE 50 MCG/ACT 16 GM NASAL SPRAY NASAL SCH (09:00)
[2017-12-23] MEDS: BUDESONIDE-FORMOTEROL 80/4.5 MCG INHALER INH SCH ×2 (09:41→21:09)
[2017-12-23] MEDS: INSULIN ASPART SUPPLEMENTAL SCALE SQ SCH ×4 (09:45→21:18)
--- NOTE | 2017-12-23 14:16 | EKG ---
Date Performed: 12/23/2017 Time Performed: 03:50:16 PTAGE: 67 years EKG: Sinus rhythm Normal ECG Compared to prior electrocardiogram, Rate has increased and PVCs are no longer present. PREVIOUS TRACING : 12/19/2017 17.44 DOCTOR: Ryan Pedro Interpretating Date/Time 12/23/2017 14:15:05
--- NOTE | 2017-12-23 15:08 | HHI.FF ---
Face to Face Verification Diagnosis: (1) Coronary artery disease (2) Hyperlipemia (3) Hypothyroidism (4) Hypertension (5) S/P CABG x 3 Home Health Nursing Order: Signs/symptoms of disease process Medication education-adverse effect Wound care and dressing changes Nursing assessment with vital signs Instructions: Heart and Vascular Surgery patients *Special attention to sternal dressing Mandatory frequency Assess and evaluation, 4 days in a row The next week 3X week 2 times a week for 4 weeks 1 time a week for 5 weeks Schedule Heart and Vascular patients for full 60 day certification period Initial visit Review Open Heart Surgery Discharge Instructions (Sternal precautions, Activity, Elastic hose, Incision care, Driving, Incentive spirometry, Smoking, Leonidas, Work and other) Need Betadine to paint incision Medication reconciliation Importance of follow up care/ check on appointments Make calendar record temperature daily When to call [facility] nurse, review instructions, phone list Incentive Spirometry, demonstration Visit 1- Begin discharge instruction for patient family and/ or caregiver using teach back method- Signs and symptoms of infection Disease characteristics Medicines and side effects Foods and nutrition/ appetite Infection control/ hand washing/ hygiene Visit 2- Continue teaching Discharge instructions- include additional information on smoking cessation , sternal dressing (sternal vac) Visit 3- Continue teaching- Cough and deep breathing, incision monitoring. Choose my plate Visit 4- Continue teaching- Discuss limitations Discuss how they are feeling Discuss progress toward goals Remaining visits- continue teaching and monitoring For any questions please call : Friday 8am-5pm Heart & Vascular Surgery Office ( Dr. Disla & Dr. Hall), After Hours / Nights (5pm -8am) Weekends and Holidays Please call [facility] ([facility]) Charge Nurse PREVENA Single Use Negative Wound Therapy System Caregiver Instruction Sheet 1. A Prevena dressing system was applied to the chest incision during surgery , to promote wound healing. It works via a suction device (negative pressure wound therapy) to remove low to moderate levels of exudate (drainage) and infectious materials. We recommend that the device stay in place for up to seven days, from day of surgery. 2. Day of Surgery___/05/31 Day of Removal / 3. The dressing should only be removed by a health palliative care coordinator. Please arrange removal of device to coincide with Home Health visit and or with Nursing staff at Rehab 4. If skin reddening or irritation of skin occurs, or excessive drainage, please notify the Cardiovascular Surgeons office at [phone]. 5. Light showering is permissible; however the pump should be disconnected and placed in safe location, where it will not get wet. The dressing should not be exposed to direct spray or submerged in water. No bath tub / shower only. Ensure the end of the tubing attached to the dressing is facing down so that water does not enter the top of the tube. 6. To remove Prevena dressing: press purple button to turn off device / remove the suction. Then disconnect the tubing from the pump. The fixation strips should be stretched away from the skin and the dressing lifted at one corner and peeled back until it has been fully removed. 7. After removal, it is ok to shower daily using liquid dial soap and clean wash cloth, rinse and pat dry, and leave incision open to air dry. For any concerns regarding Prevena dressing, and or wounds, please contact Nupur Zaragoza, patient navigator at [phone] or notify the Cardiovascular Surgeons office at [phone]. Incentive spirometry Q1 hr x 10, while awake, also use acapella device hourly whole awake Sternal Breast Bone Precautions: NO pushing or pulling, ( pt must use sternal pillow to support chest with all activities and with coughing ( takes up to 3 months breast bone to heal ) All females to wear sternal bra , launder as needed Daily incision care: ok to shower daily, no tub bath. Wash all incisions with liquid dial soap, clean wash cloth to each site, rinse and pat dry. Observe for any signs of infection, such as drainage which is dark yellow, tanner, green or foul smelling. Immediately report to the surgeon any drainage from the chest incision, or legs, and for any abnormal drainage from the chest tube sites. Notify surgeon if any temp >101.5 degrees F. When specialty dressing removed/ or if you do not have one, continue to shower daily as above, then rinse and pat incision dry and paint with betadine daily x 5 days. Allow steri strips to fall off if you have any. Avoid lotions, creams, salves, oils, etc. for the first month Please see attached forms for additional instructions regarding post Open Heart specialty wound vacuum dressings. LORETO or Prevena , Dressing to be removed by Nursing staff on ___12/29/17____ For Dr. Hall patients , please obtain CBC, BMP, PA & Lat CXR in 2 weeks, results to Dr. Hall ( prescription will be given) ( ) (Tele: [phone]) , F/U appointment: as per DC instructions: PCP in 2 weeks, CV surgeon 2 weeks, Steam Box Operator 3-4 weeks For any questions regarding incisions/ dressing / meds / post op care or above Symptoms, Friday 8am-5pm Heart & Vascular Surgery Office ( Dr. Disla & Dr. Hall), After Hours / Nights (5pm -8am) Weekends and Holidays Please call [facility] ([facility]) Charge Nurse I have seen patient Rom Washington on 12/23/17. My clinical findings support the need for the requested home health care services because: Deconditioned w/ increased weakness I certify that my clinical findings support that this patient is homebound because: Post-op weakness Agnieszka Landon Dec 23, 2017 15:08
[2017-12-23] MEDS ORDERED: DOCUSATE SODIUM 100 MG CAP PO SCH (21:00)
[2017-12-23] MEDS: SENNOSIDES 8.6 MG TAB PO SCH (21:08)
[2017-12-23] MEDS: ATORVASTATIN 40 MG TAB PO SCH (21:09)
[2017-12-24] VITALS (26 sets, daily range): BP systolic 106–141; BP diastolic 68–88; PULSE 73–114; RESP 16–20; TEMP 97.6–98.6; O2SAT 93–99
[2017-12-24] MEDS: INSULIN ASPART SUPPLEMENTAL SCALE SQ SCH ×6 (02:00→21:00)
[2017-12-24] MEDS: METOCLOPRAMIDE HCL 10 MG/2 ML VIAL IV PUSH SCH (03:28)
[2017-12-24] MEDS: ACETAMINOPHEN/HYDROcodone 325 MG/5 MG TAB PO PRN ×6 (04:57→21:53)
[2017-12-24 05:31] LABS: AUTOMATED NEUTROPHIL # 5.8 TH/MM3 (1.8-7.7); BASOPHIL % 0.2 % (0.0-2.0); EOSINOPHIL % 0.3 % (0.0-4.0); HEMATOCRIT 30.4 % (39.0-51.0); HEMOGLOBIN 10.6 GM/DL (13.0-17.0); LYMPH % 7.6 % (9.0-44.0); LYMPHOCYTE # 0.5 TH/MM3 (1.0-4.8); MEAN CELL VOLUME 95.4 FL (80.0-100.0); MEAN CORPUSCULAR HEMOGLOBIN 33.3 PG (27.0-34.0); MEAN CORPUSCULAR HGB CONC 34.9 % (32.0-36.0); MONO % 11.2 % (0.0-8.0); MONOCYTE # 0.8 TH/MM3 (0-0.9); NEUT % 80.7 % (16.0-70.0); PLATELET COUNT 169 TH/MM3 (150-450); RED BLOOD COUNT 3.18 MIL/MM3 (4.50-5.90); WHITE BLOOD COUNT 7.2 TH/MM3 (4.0-11.0)
[2017-12-24 05:50] LABS: BICARBONATE 24.3 MEQ/L (21.0-32.0); CALCIUM 7.8 MG/DL (8.5-10.1); MAGNESIUM 2.2 MG/DL (1.5-2.5)
[2017-12-24] MEDS: LEVOTHYROXINE SODIUM 150 MCG TAB PO SCH (06:09)
[2017-12-24] MEDS: ceFAZolin 2 GM PREMIX 50 ML IV SCH (06:10)
[2017-12-24] MEDS: PANTOPRAZOLE SOD 40 MG DELAYED RELEASE TAB PO SCH (06:10)
[2017-12-24] MEDS: LEVOTHYROXINE SODIUM 25 MCG TAB PO SCH (06:10)
[2017-12-24] MEDS: KETOROLAC TROMETHAMINE 30 MG/ML (IVP) VIAL IV PUSH PRN ×2 (06:16→13:00)
[2017-12-24] MEDS: RESP: ALBUTEROL 2.5 MG/IPRATROPIUM 0.5 MG NEB (SCH) NEB ×2 (07:30→19:43)
[2017-12-24] MEDS: CLOPIDOGREL 75 MG TAB PO SCH (07:56)
[2017-12-24] MEDS: METOPROLOL TARTRATE 25 MG TAB PO SCH ×2 (07:56→21:52)
[2017-12-24] MEDS: BUDESONIDE-FORMOTEROL 80/4.5 MCG INHALER INH SCH ×2 (07:56→21:54)
[2017-12-24] MEDS: POLYETHYLENE GLYCOL 17 GM PKG PO SCH (07:57)
[2017-12-24] MEDS: MULTIVITAMINS/MINERALS THERAPEUTIC TAB PO SCH (07:57)
[2017-12-24] MEDS: MAGNESIUM HYDROXIDE SUSP 30 ML CUP PO SCH (07:57)
[2017-12-24] MEDS: AMIODARONE 200 MG TAB PO SCH ×3 (07:58→21:50)
[2017-12-24] MEDS: DOCUSATE SODIUM 50 MG/SENNA 8.6 MG TAB PO SCH ×2 (07:58→21:00)
[2017-12-24] MEDS: ASPIRIN 81 MG CHEW TAB PO SCH (07:58)
[2017-12-24] MEDS: SODIUM CHLORIDE 0.9% FLUSH 10 ML FLUSH IV FLUSH SCH ×2 (08:08→21:54)
[2017-12-24] MEDS: FLUTICASONE PROPIONATE 50 MCG/ACT 16 GM NASAL SPRAY NASAL SCH (08:08)
[2017-12-24] MEDS: ALPRAZolam 1 MG TAB PO PRN ×2 (10:58→23:11)
[2017-12-24] MEDS ORDERED: METOPROLOL TARTRATE 25 MG TAB PO ONE (11:00)
[2017-12-24] MEDS: THIAMINE HCL 100 MG TAB PO SCH (11:53)
[2017-12-24] MEDS: FOLIC ACID 1 MG TAB PO SCH (11:53)
--- NOTE | 2017-12-24 14:15 | PD.CAR.PN ---
CVT Progress Note Subjective/Hospital Course: 12/20 Doing well this am. Denies Cp/SOB c/o right hand tingling and numbness..better than yesterday Will ask Dr. Borden for his opinion with concern for compartment syndrome during surgery following full heparinization Plan for CABG Friday if ok with Dr. Borden 12/21 Remains CP free Had temp overnight. CBC pending. Pancultured Currently second case tomorrow pending fever pattern and cultures 12/22 1. Urgent Off-pump Coronary Artery Bypass Grafting x 3 with reverse saphenous vein graft to Left Anterior Descending (LAD), reverse saphenous vein graft to Diagonal 1 (D1), reverse saphenous vein graft to the Obtuse Marginal 1 (OM1) 2. Left Internal Mammary Artery (MOORE) [place] 3. Left Leg Endoscopic Vein [place] 4. Intraoperative Vein Mapping. extubated after surgery crystalloid 3000cc, cell saver 250cc, EBL 500cc 12/23 pt had some nausea last pm ECG NSR with occ PVC/ increase amiodarone dose OOB to chair add reglan for nausea 12/24 pt more anxious today home xanax dose resumed HX of ETOH/ add rally shasha chest tube removed without difficulty still has occasional pvc/ normal electrolytes amiodarone and BB increased f/u labs in am Objective: GENERAL: A&O x 3 , anxious SKIN: Warm and dry. HEAD: Normocephalic. EYES: No scleral icterus. No injection or drainage. NECK: Supple, trachea midline. No JVD or lymphadenopathy. CARDIOVASCULAR: Regular rate and rhythm without murmurs, gallops, or rubs. slightly tachycardic RESPIRATORY: Breath sounds equal bilaterally. No accessory muscle use. chest tube removed without difficultly GASTROINTESTINAL: Abdomen soft, non-tender, nondistended. MUSCULOSKELETAL: No cyanosis, or edema. BACK: Nontender without obvious deformity. No CVA tenderness. Vital Signs Date Time Temp Pulse Resp B/P (MAP) Pulse Ox O2 Delivery O2 Flow Rate FiO2 12/24/17 12:00 101 12/24/17 11:00 95 12/24/17 11:00 98.4 78 20 125/82 (96) 95 12/24/17 10:00 100 12/24/17 09:00 111 12/24/17 08:00 114 12/24/17 07:33 93 21 12/24/17 07:30 93 Room Air 12/24/17 07:30 98.1 73 18 141/74 (96) 93 12/24/17 07:30 101 12/24/17 06:19 101 12/24/17 05:09 105 12/24/17 04:19 98 12/24/17 03:05 98.6 94 106/68 (81) 93 12/24/17 03:04 92 12/24/17 02:46 101 12/24/17 01:06 92 12/24/17 00:33 18 12/24/17 00:32 94 12/23/17 23:33 98.4 75 118/76 (90) 94 12/23/17 23:31 97 12/23/17 22:36 20 12/23/17 22:35 105 12/23/17 21:38 99 12/23/17 20:57 96 12/23/17 19:53 96 Nasal Cannula 2.00 12/23/17 19:00 97 Nasal Cannula 2.00 12/23/17 19:00 98.6 77 112/66 (81) 97 12/23/17 19:00 77 12/23/17 18:00 83 12/23/17 17:00 88 12/23/17 16:34 91 17 129/61 (83) 96 12/23/17 16:34 17 12/23/17 15:53 98.3 80 20 106/69 (81) 98 12/23/17 15:00 87 12/23/17 15:00 98 Nasal Cannula 2.00 Labs: Laboratory Tests Test 12/24/17 04:40 White Blood Count 7.2 TH/MM3 (4.0-11.0) Red Blood Count 3.18 MIL/MM3 (4.50-5.90) Hemoglobin 10.6 GM/DL (13.0-17.0) Hematocrit 30.4 % (39.0-51.0) Mean Corpuscular Volume 95.4 FL (80.0-100.0) Mean Corpuscular Hemoglobin 33.3 PG (27.0-34.0) Mean Corpuscular Hemoglobin Concent 34.9 % (32.0-36.0) Red Cell Distribution Width 13.0 % (11.6-17.2) Platelet Count 169 TH/MM3 (150-450) Mean Platelet Volume 10.0 FL (7.0-11.0) Neutrophils (%) (Auto) 80.7 % (16.0-70.0) Lymphocytes (%) (Auto) 7.6 % (9.0-44.0) Monocytes (%) (Auto) 11.2 % (0.0-8.0) Eosinophils (%) (Auto) 0.3 % (0.0-4.0) Basophils (%) (Auto) 0.2 % (0.0-2.0) Neutrophils # (Auto) 5.8 TH/MM3 (1.8-7.7) Lymphocytes # (Auto) 0.5 TH/MM3 (1.0-4.8) Monocytes # (Auto) 0.8 TH/MM3 (0-0.9) Eosinophils # (Auto) 0.0 TH/MM3 (0-0.4) Basophils # (Auto) 0.0 TH/MM3 (0-0.2) CBC Comment DIFF FINAL Differential Comment Blood Urea Nitrogen 18 MG/DL (7-18) Creatinine 1.00 MG/DL (0.60-1.30) Random Glucose 119 MG/DL (74-106) Calcium Level 7.8 MG/DL (8.5-10.1) Magnesium Level 2.2 MG/DL (1.5-2.5) Sodium Level 138 MEQ/L (136-145) Potassium Level 4.0 MEQ/L (3.5-5.1) Chloride Level 102 MEQ/L (98-107) Carbon Dioxide Level 24.3 MEQ/L (21.0-32.0) Anion Gap 12 MEQ/L (5-15) Estimat Glomerular Filtration Rate 75 ML/MIN (>89) Result Diagram: 12/24/170 12/24/17 0440 Telemetry: NSR>ST with PVC's (1) S/P CABG x 3 Plan: ASA, stain increase BB increase amiodarone EF 45% OOB, chest tubes removed CM eval for HHC (2) Coronary artery disease (3) Hyperlipemia Plan: n statin (4) Hypertension (5) Hypothyroidism Plan: synthroid (6) History of ETOH abuse Plan: alicja pulliam started xanax reordered Agnieszka Landon Dec 24, 2017 14:14
[2017-12-24] MEDS ORDERED: MAGNESIUM SULFATE 1 GM PREMIX 100 ML IV ONE (14:30)
[2017-12-24] MEDS: ACETAMINOPHEN 325 MG TAB PO PRN (18:36)
[2017-12-24] MEDS: SENNOSIDES 8.6 MG TAB PO SCH (21:00)
[2017-12-24] MEDS: ATORVASTATIN 40 MG TAB PO SCH (21:50)
[2017-12-25] VITALS (21 sets, daily range): BP systolic 114–143; BP diastolic 65–93; PULSE 65–100; RESP 16–20; TEMP 97.8–98.5; O2SAT 93–97
[2017-12-25] MEDS: ACETAMINOPHEN/HYDROcodone 325 MG/5 MG TAB PO PRN ×6 (00:54→18:36)
[2017-12-25 05:03] LABS: HEMATOCRIT 30.4 % (39.0-51.0); HEMOGLOBIN 10.6 GM/DL (13.0-17.0); MEAN CELL VOLUME 96.4 FL (80.0-100.0); MEAN CORPUSCULAR HEMOGLOBIN 33.5 PG (27.0-34.0); MEAN CORPUSCULAR HGB CONC 34.7 % (32.0-36.0); MEAN PLATELET VOLUME 9.7 FL (7.0-11.0); PLATELET COUNT 191 TH/MM3 (150-450); RED BLOOD COUNT 3.16 MIL/MM3 (4.50-5.90); RED CELL DISTRIBUTION WIDTH 12.9 % (11.6-17.2); WHITE BLOOD COUNT 7.1 TH/MM3 (4.0-11.0)
--- NOTE | 2017-12-25 06:10 | RADRPT ---
EXAM DATE: 12/25/2017 6:01 AM EDT AGE/SEX: 67 years / Male INDICATIONS: Shortness of breath, possible pneumothorax. CLINICAL DATA: This is the patient's subsequent encounter. Patient reports that signs and symptoms h ave been present for 4 - 6 days and indicates a pain score of 5/10. MEDICAL/SURGICAL HISTORY: . [place] Coronary artery stent. COMPARISON: No prior exams available for comparison. FINDINGS: Single AP view the chest. Median sternotomy wires again seen. Right IJ central venous catheter remain s in place. Left-sided chest tube is no longer seen. Mild patchy bilateral lower lung zone opacity ag ain seen. No evidence of pleural effusion or pneumothorax. CONCLUSION: Left-sided chest tube no longer seen. No evidence of pneumothorax. Electronically signed by: Judd Arreola MD 12/25/2017 6:09 AM EDT
[2017-12-25] MEDS: AMIODARONE 200 MG TAB PO SCH ×3 (06:46→20:54)
[2017-12-25] MEDS: LEVOTHYROXINE SODIUM 25 MCG TAB PO SCH (06:46)
[2017-12-25] MEDS: LEVOTHYROXINE SODIUM 150 MCG TAB PO SCH (06:46)
[2017-12-25] MEDS: PANTOPRAZOLE SOD 40 MG DELAYED RELEASE TAB PO SCH (06:47)
[2017-12-25] MEDS: RESP: ALBUTEROL 2.5 MG/IPRATROPIUM 0.5 MG NEB (SCH) NEB (07:27)
[2017-12-25] MEDS ORDERED: SOD PHOSPHATE/SOD BIPHOSPHATE (ADULT) ENEMA 133ML RECTAL PRN (09:00)
[2017-12-25] MEDS: MAGNESIUM HYDROXIDE SUSP 30 ML CUP PO SCH (09:00)
[2017-12-25] MEDS: POLYETHYLENE GLYCOL 17 GM PKG PO SCH (09:00)
[2017-12-25] MEDS: BUDESONIDE-FORMOTEROL 80/4.5 MCG INHALER INH SCH ×2 (09:00→20:56)
[2017-12-25] MEDS: MULTIVITAMINS/MINERALS THERAPEUTIC TAB PO SCH (09:20)
[2017-12-25] MEDS: THIAMINE HCL 100 MG TAB PO SCH (09:20)
[2017-12-25] MEDS: ASPIRIN 81 MG CHEW TAB PO SCH (09:20)
[2017-12-25] MEDS: METOPROLOL TARTRATE 25 MG TAB PO SCH ×2 (09:20→20:53)
[2017-12-25] MEDS: DOCUSATE SODIUM 50 MG/SENNA 8.6 MG TAB PO SCH ×2 (09:20→20:29)
[2017-12-25] MEDS: CLOPIDOGREL 75 MG TAB PO SCH (09:20)
[2017-12-25] MEDS: FOLIC ACID 1 MG TAB PO SCH (09:21)
[2017-12-25] MEDS ORDERED: MAGNESIUM SULFATE 1 GM PREMIX 100 ML IV ONE (10:30)
[2017-12-25] MEDS ORDERED: METOPROLOL TARTRATE 25 MG TAB PO ONE (10:30)
[2017-12-25] MEDS: INSULIN ASPART SUPPLEMENTAL SCALE SQ SCH ×3 (11:52→20:28)
[2017-12-25] MEDS: POTASSIUM PHOSPHATE MONOBASIC 500 MG TAB PO SCH ×2 (18:32→20:54)
[2017-12-25] MEDS: SENNOSIDES 8.6 MG TAB PO SCH (20:29)
[2017-12-25] MEDS: ATORVASTATIN 40 MG TAB PO SCH (20:53)
[2017-12-25] MEDS: SODIUM CHLORIDE 0.9% FLUSH 10 ML FLUSH IV FLUSH SCH (20:54)
[2017-12-25] MEDS: ALPRAZolam 1 MG TAB PO PRN (20:54)
[2017-12-26] VITALS (9 sets, daily range): BP systolic 111–141; BP diastolic 75–84; PULSE 52–92; RESP 16–18; TEMP 97.7–98.5; O2SAT 95–96
[2017-12-26] MEDS: ACETAMINOPHEN/HYDROcodone 325 MG/5 MG TAB PO PRN ×4 (02:41→12:59)
[2017-12-26] MEDS ORDERED: LEVOTHYROXINE SODIUM 150 MCG TAB PO SCH (06:00)
[2017-12-26] MEDS: AMIODARONE 200 MG TAB PO SCH ×2 (06:01→12:58)
[2017-12-26] MEDS: PANTOPRAZOLE SOD 40 MG DELAYED RELEASE TAB PO SCH (06:02)
[2017-12-26] MEDS ORDERED: AMIO200T PO (08:50)
[2017-12-26] MEDS ORDERED: HYDR-3516 PO (08:50)
[2017-12-26] MEDS ORDERED: METO25TA3 PO (08:50)
[2017-12-26] MEDS ORDERED: ATOR40TA16 PO (08:50)
[2017-12-26] MEDS ORDERED: PLAV75TA29 PO (08:50)
--- NOTE | 2017-12-26 08:51 | HHI.DS ---
Discharge Summary Admission Date Dec 19, 2017 at 15:38 Discharge Date: Dec 26, 2017 Admitting Diagnosis CBC/BMP: 12/25/17 0430 12/24/17 0440 Significant Findings Laboratory Tests Test 12/24/17 04:40 12/25/17 04:30 12/25/17 11:05 Red Blood Count 3.18 MIL/MM3 (4.50-5.90) 3.16 MIL/MM3 (4.50-5.90) Hemoglobin 10.6 GM/DL (13.0-17.0) 10.6 GM/DL (13.0-17.0) Hematocrit 30.4 % (39.0-51.0) 30.4 % (39.0-51.0) Neutrophils (%) (Auto) 80.7 % (16.0-70.0) Lymphocytes (%) (Auto) 7.6 % (9.0-44.0) Monocytes (%) (Auto) 11.2 % (0.0-8.0) Lymphocytes # (Auto) 0.5 TH/MM3 (1.0-4.8) Random Glucose 119 MG/DL (74-106) Calcium Level 7.8 MG/DL (8.5-10.1) Estimat Glomerular Filtration Rate 75 ML/MIN (>89) Phosphorus Level 2.0 MG/DL (2.5-4.9) Hospital Course 12/20 Doing well this am. Denies Cp/SOB c/o right hand tingling and numbness..better than yesterday Will ask Dr. Borden for his opinion with concern for compartment syndrome during surgery following full heparinization Plan for CABG Friday if ok with Dr. Borden 12/21 Remains CP free Had temp overnight. CBC pending. Pancultured Currently second case tomorrow pending fever pattern and cultures 12/22 1. Urgent Off-pump Coronary Artery Bypass Grafting x 3 with reverse saphenous vein graft to Left Anterior Descending (LAD), reverse saphenous vein graft to Diagonal 1 (D1), reverse saphenous vein graft to the Obtuse Marginal 1 (OM1) 2. Left Internal Mammary Artery (MOORE) [place] 3. Left Leg Endoscopic Vein [place] 4. Intraoperative Vein Mapping. extubated after surgery crystalloid 3000cc, cell saver 250cc, EBL 500cc 12/23 pt had some nausea last pm ECG NSR with occ PVC/ increase amiodarone dose OOB to chair add reglan for nausea 12/24 pt more anxious today home xanax dose resumed HX of ETOH/ add rally shasha chest tube removed without difficulty still has occasional pvc/ normal electrolytes amiodarone and BB increased f/u labs in am 12/26 D/C home Pt Condition on Discharge: Good Discharge Disposition: Disch w/ Home Health Serv Discharge Instructions DIET: Follow Instructions for: Heart Healthy Diet Activities you can perform: Full Weight Bearing, Shower Only-No Bath Activities to avoid: Lifting/Bending, Strenuous Activity, Driving, Sexual Activity Follow up Referrals: Cardiology - [address] Neil Brenner [address], [place] [address] PCP Follow-up - [address] Ivana Nicole [address], [place] [address] Surgical - 2 Weeks with Agnieszka Landon New Medications: Amiodarone (Amiodarone) 200 Mg Tab 400 MG PO Q12HR for z for 14 Days, TAB Atorvastatin (Atorvastatin) 40 Mg Tab 40 MG PO HS for Cholesterol Management for 90 Days, TAB Clopidogrel (Plavix) 75 Mg Tab 75 MG PO DAILY for z, #90 TAB 5 Refills Hydrocodone/Acetaminophen (Hydrocodone-Acetamin 5-325 mg) 5 Mg-325 Mg Tablet 1 TAB PO Q3H PRN for PAIN SCALE 1 TO 5 for 7 Days, #56 TAB Metoprolol Tartrate (Metoprolol Tartrate) 25 Mg Tab 50 MG PO BID for z for 90 Days, #360 TAB Continued Medications: Alprazolam (Xanax) 1 Mg Tab 1 MG PO BID PRN for ANXIETY, TAB 0 Refills Aspirin (Aspirin Low Dose) 81 Mg Chew 81 MG CHEW DAILY, TAB 0 Refills Budesonide-Formoterol Inh (Symbicort Inh) 80-4.5 Mcg/Act Aero 2 PUFF INH Q12HR for Asthma Management, #1 INHALER 0 Refills Cetirizine (Cetirizine) 10 Mg Tab 10 MG PO DAILY for Allergies, TAB 0 Refills Levothyroxine (Levothyroxine) 175 Mcg Tab 175 MCG PO DAILY@0600 for Thyroid, #30 TAB 0 Refills Omeprazole (Omeprazole) 20 Mg Tab 20 MG PO DAILY@0600, #30 TAB 0 Refills Tramadol (Tramadol) 50 Mg Tab 50 MG PO BID PRN for PAIN, TAB 0 Refills Triamcinolone Acetonide Nasal Delta (Nasacort Allergy 24Hr Nasal Delta) 55 Mcg Spr 55 MCG EACH NARE DAILY for Allergy Management, BOTTLE 0 Refills Verapamil SR (Verapamil SR) 180 Mg Cap 180 MG PO HS, #30 CAP 0 Refills Discontinued Medications: Sildenafil (Viagra) 100 Mg Tab 100 MG PO DAILY PRN for ERECTILE DYSFUNCTION, TAB 0 Refills Henrique Disla MD Dec 26, 2017 08:51
[2017-12-26] MEDS: METOPROLOL TARTRATE 25 MG TAB PO SCH (09:55)
[2017-12-26] MEDS: FOLIC ACID 1 MG TAB PO SCH (09:55)
[2017-12-26] MEDS: ASPIRIN 81 MG CHEW TAB PO SCH (09:55)
[2017-12-26] MEDS: MULTIVITAMINS/MINERALS THERAPEUTIC TAB PO SCH (09:55)
[2017-12-26] MEDS: CLOPIDOGREL 75 MG TAB PO SCH (09:55)
[2017-12-26] MEDS: THIAMINE HCL 100 MG TAB PO SCH (09:56)
[2017-12-26] MEDS: DOCUSATE SODIUM 50 MG/SENNA 8.6 MG TAB PO SCH (09:56)
[2017-12-26] MEDS: POTASSIUM PHOSPHATE MONOBASIC 500 MG TAB PO SCH (09:56)
--- NOTE | 2017-12-29 11:03 | RSPPFT ---
DATE OF PROCEDURE: 12/19/17 COMMENTS: VOLUMES DYNAMIC: FVC and FEV1 moderately reduced. FLOWS: FEV1% moderately reduced; FEF 25-75 severely reduced. IMPRESSION: Moderately severe obstructive ventilatory defect.
== END 2017-12-26 13:15 | disposition home health service (06) | DRG 235 ==
LOC: HCPC 15:38 → HCVI 12-22 18:55 → HCPC 12-23 08:06 → HCVI 12-23 08:13 → HCPC 12-23 16:25
PROVIDERS: ADMIT Thoracic Surgery (Cardiothoracic Vascular Surgery); ATTEND Thoracic Surgery (Cardiothoracic Vascular Surgery)
PROC: 06BQ4ZZ Excision of Left Saphenous Vein, Percutaneous Endoscopic Approach (ICD-10-PCS; 2017-12-22)
PROC: 021209W Bypass Coronary Artery, Three Arteries from Aorta with Autologous Venous Tissue, Open Approach (ICD-10-PCS; principal; 2017-12-22 13:59)
DX: I25.10 Atherosclerotic heart disease of native coronary artery without angina pectoris (principal); I21.4 Non-ST elevation (NSTEMI) myocardial infarction; J44.9 Chronic obstructive pulmonary disease, unspecified; L76.32 Postprocedural hematoma of skin and subcutaneous tissue following other procedure; I10 Essential (primary) hypertension; E66.9 Obesity, unspecified; Z68.28 Body mass index [BMI] 28.0-28.9, adult; Z79.82 Long term (current) use of aspirin; Z95.5 Presence of coronary angioplasty implant and graft; Z85.850 Personal history of malignant neoplasm of thyroid; E89.0 Postprocedural hypothyroidism; E78.5 Hyperlipidemia, unspecified; Z90.5 Acquired absence of kidney; R11.0 Nausea; F41.9 Anxiety disorder, unspecified; Z72.89 Other problems related to lifestyle; Z87.891 Personal history of nicotine dependence
CPT/HCPCS: 36430; 71045; 76937; 80048; 80053; 80061; 81001; 82948; 83036; 83735; 84100; 84443; 84484; 85025; 85027; 85610; 85730; 86850; 86900; 86901; 86920; 87086; 87641; 93005; 93880; 93970; 93998; 94002; 94010; 94150; 94640; 94664; 94667; 94668; C1768; J0131; J0690; J1200; J1644; J1815; J1817; J1885; J2250; J2270; J2370; J2440; J2720; J2765; J3010; J3370; J3475; J7040; J7050; P9016; P9045